=== PATIENT | female | born 1990 | race Hispanic/Latino ===

== ENCOUNTER 2019-09-05 23:27 | Emergency (ER) | payer SELFPAY ==
[2019-09-06 00:22] LABS: #Basophils 0.1 thou/uL (0.0-0.2); #Eosinphils 0.4 thou/uL (0.0-0.7); #Monocytes 0.7 thou/uL (0.11-0.59); #Neutrophils 4.7 thou/uL (1.40-6.50); %Basophils 0.9 % (0.0-1.0); %Eosinophils 4.7 % (0.0-10.0); %Lymphocytes 26.2 % (21.0-51.0); %Monocytes 8.6 % (0.0-10.0); %Neutrophils 59.6 % (42.0-75.0); Hemoglobin 13.5 g/dL (12.0-16.0); Mean Corpuscular Hemoglobin 31.7 pg (27.0-31.0); Mean Corpuscular Volume 90.7 fL (78.0-98.0); Mean Platelet Volume 8.5 fL (7.4-10.4); Platelet Count 173 thou/uL (130-400); RBC Distribution Width 11.5 % (11.5-14.5); Red Blood Cell (RBC) Count 4.24 mill/uL (4.20-5.40); White Blood Cell (WBC) Count 7.8 thou/uL (4.8-10.8)
[2019-09-06 01:31] LABS: Bilirubin Negative (Negative); Blood, Urine Negative (Negative); Clarity Turbid (Clear); Glucose, Urine (Dipstick) 100 mg/dL (Negative); Leukocyte Negative Leu/uL (Negative); Nitrite Negative (Negative); Protein, Urine (Dipstick) Negative (Neg-Trace); Urobilinogen Normal mg/dL (Less than 2)
--- NOTE | 2019-09-06 08:53 | ULT ---
PRELIMINARY REPORT/[facility]/EMERGENCY AFTER HOURS PROCEDURE PROCEDURE INFORMATION: Exam: US First Trimester, Transabdominal Exam date and time: 09/06/2019 12:59 AM Clinical history: 29 years old, female; Lmp or gestational age (in weeks): 7wks; Other: Vag spotting; TECHNIQUE: Imaging protocol: Real-time transabdominal obstetrical ultrasound of the maternal pelvis and a first trimester , less than 14 weeks 0 days, with image documentation. COMPARISON: No relevant prior studies available. FINDINGS: Beta HCG: Beta-hCG measures [id number]. GESTATION: Gestation: Yolk sac is visualized. Heart rate: heart rate measures 143 beats per minute. Placenta: There is hypoechoic region surrounding the gestational sac in the uterine fundus measuring 2 x 0.5 x 2.9 cm and within the lower uterine segment measuring 1.7 x 0.8 x 0.9 cm compatible with subchorionic hemorrhage. Amniotic fluid: Amniotic and chorionic fluid are normal for gestational age. BIOMETRY: Estimated gestational age: Estimated gestational age is 7 weeks 4 days based on crown-rump length. MATERNAL: Uterus: Unremarkable. Cervix: Unremarkable. Right adnexa: The right ovary measures 4 x 1.4 x 2.1 cm. Normal arterial and venous waveforms. Left adnexa: Left ovary measures 3.0 x 1.7 x 2.4 cm. Normal arterial and venous waveforms. Intraperitoneal: No intraperitoneal free fluid. IMPRESSION: 1. Live intrauterine with estimated gestational age of 7 weeks 4 days. 2. Subchorionic hemorrhage as above. Thank you for allowing us to participate in the care of your patient. Dictated and Authenticated by: Wilbert Cardozo MD 09/06/2019 2:02 AM Central Time ([place] & [place]) FINAL REPORT BY DR. ESPINOSA EMERGENCY AFTER HOURS STUDY ULTRASOUND OBSTETRICAL EARLY: HISTORY: First trimester vaginal bleeding in 29-year-old female. FINDINGS: Intrauterine gestational sac containing embryonic pole with crown-rump length of 1.3 cm corresponding to 7 weeks 4 days gestational age. heart rate 143 BPM. There are 2 separate foci of subchorionic hemorrhage. Agree with preliminar y report by [facility]. IMPRESSION: 1. Live first trimester intrauterine gestation. 2. Subchorionic hemorrhage. Transcribed Date/Time: 09/06/2019 9:35 AM
[2019-09-07 14:37] LABS: Chlamydia by PCR Not Detected (NotDetected); GC by PCR Not Detected (NotDetected)
== END 2019-09-06 03:39 | disposition home or self-care (01) ==
LOC: ERS 23:27
DX: O20.0 Threatened abortion (principal); Z3A.01 Less than 8 weeks gestation of pregnancy
CPT/HCPCS: 36415; 76856; 81003; 84702; 85025; 86900; 86901; 87480; 87491; 87510; 87591; 87660

== ENCOUNTER 2020-03-25 20:32 | Inpatient (IN) | payer MEDICAID, SELFPAY ==
[~2020-03-25 20:32] MED LIST: Bupivacaine/Epinephrine 0.25% 30 ML VIAL ONE
[2020-03-25] MEDS ORDERED: Carboprost 250 MCG/ML AMP IM PRN (21:26)
[2020-03-25] MEDS ORDERED: Methylergonovine 0.2 MG/ML VIAL IM PRN (21:26)
[2020-03-25] MEDS ORDERED: Promethazine HCl 25 MG/ML VIAL IM PRN (21:26)
[2020-03-25] MEDS ORDERED: Misoprostol 200 MCG TAB PR PRN (21:26)
[2020-03-25] MEDS ORDERED: NS / Oxytocin 40 units/1000ml 1,000 ML IV PRN (21:26)
[2020-03-25] MEDS ORDERED: hydrALAZINE 20 MG/ML VIAL SLOW IVP PRN (21:26)
[2020-03-25] MEDS ORDERED: Ondansetron PF 4 MG/2 ML Vial IVP PRN (21:26)
[2020-03-25] MEDS ORDERED: Butorphanol Tartrate 1 MG/ML VIAL SLOW IVP PRN (21:26)
[2020-03-25] MEDS ORDERED: Lidocaine 1% (PF) 30 ML VIAL SC PRN (21:26)
--- NOTE | 2020-03-25 21:42 | PDOC.FPROB ---
FMR OB H&P: HPI - History of Present Illness Chief Complaint: SROM @ 20:30 Indentification: 29 y/o @ 36.5 wks dated by LMP c/w 7.0 wk sono History of Present Illness: 29 y/o @ 36.5 wks dated by LMP c/w 7.0 wk sono, presents to L&D after SROM at 20:30 today (03/25). Pt states that there is a large amount of clear fluid draining vaginally whenever she stands, soaking through her clothing. Pt reports movements, denies vaginal bleeding. Pt feels pain in her low pelvic region and states she had a "mucus like" discharge a few days ago. Does not think she is having contractions. Pt states it has been 2 weeks since sexual intercourse. Pt had a large subchorionic hemorrhage early in and had vaginal bleeding early on in that resolved. Primary Care Physician: [facility]- Dr. Ortiz FMR OB H&P: Current - Care : 1 Para: 0 Gestational age: 36.5 Due date: 04/17/20 Dating Criteria: LMP c/w 7.0 wk sono Course/Complications: Large subchorionic hemorrhage early in - OB Labs Blood type: O RH: positive Antibody Screen: negative HIV: negative RPR: negative HepBsAg: negative Rubella: immune Gonorrhea: unknown Chlamydia: unknown 1 hour gtt: 123 GBS: negative (Per patient, will confirm with [facility] records) - First Trimester Ultrasound First trimester: dating 7.0 wk sono FMR OB H&P: History - Past Medical History PMH: no known medical problems - OB History OB History: large subchorionic hemorrhage early this , resolved - Surgical History Sx History: L breast lesion removal, benign in 2016 - Social History Social History: Denies tobacco, etoh or drug use. - Family History Family History: no known family medical problems. FMR OB H&P: Medications - Current Home Medications: Medication Instructions Recorded Confirmed Type Pnv No.95/Ferrous Fum/Folic AC 1 each PO 03/25/20 History [ [place]] Allergies/Adverse Reactions: Allergies Allergy/AdvReac Type Severity Reaction Status Date / Time No Known Drug Allergies Allergy Unverified 03/25/20 21:35 FMR OB H&P: ROS - Review of Systems General: denies: fever/chills, fatigue Eyes: denies: eye pain, vision changes ENT: denies: nasal congestion, sore throat Cardiovascular: denies: chest pain, edema Respiratory: denies: cough, shortness of breath Gastrointestinal: denies: abdominal pain, nausea, vomiting, diarrhea Genitourinary (Female): reports: vaginal discharge, vaginal pain, vaginal pressure. denies: incontinence, dysuria, hematuria, hesitancy, vaginal bleeding , contractions Musculoskeletal: denies: pain, swelling Neurologic: denies: numbness, seizures Integumentary: denies: itching, rash Endocrine: denies: polyuria Hematologic/Lymphatic: denies: prolonged or excessive bleeding FMR OB H&P: Vital Signs - Maternal Vital signs: 114/77 bp 96 hr 18 rr 98 % on RA 98.3 temp - Heart Tones Baseline: 140 Variability: moderate Acceleration: present Deceleration: absent Category: category 1 [place] contractions every: 3-5 min FMR OB H&P: Physical Exam - Physical Exam General: NAD, awake, alert and oriented HEENT: normocephalic and atraumatic, PERRLA, EOMI, MMM, conjunctiva clear, no scleral icterus, grossly normal vision, grossly normal hearing, good dention Neck: supple, FROM, trachea midline Chest: non-tender to palpation Breast: symmetric Heart: RRR, normal S1/S2, no murmurs/rubs/gallops, pulses present, no edema General: CTAB, no respiratory distress, good air movement, no rales/rhonchi, no wheezing, no retractions Abdomen: soft, gravid, non-tender, bowel sound present, no masses, no hernias Musculoskeletal: normal gait and station, pulses present, FROM in all four extremities, no misalignment/asymmetry, no atrophy Neurological: cranial nerves II through XII intact, sensation to pain,touch and proprioception grossly normal, no clonus, no tremor, no focal deficit Skin: no rash, good tugor, capillary refill <2 seconds, no jaundice Lymphatic: no unusual bruising or bleeding, no purpura, no petechia Psychiatric: intact recent and remote memory, good judgement and insight, normal mood and affect - Pelvic Exam Vulva: normal hair distribution, appropriate kathie stage, no masses, no lesions , no blood Deviation from normal: Leo clear fluid present whel patient stands, or valsalvas leaking vaginal SVE: /-3 Eagle score: 8 Membranes: ruptured Presentation: cephalic, confrimed with fast sono FMR OB H&P: A/P - Problem List (1) premature rupture of membranes (PPROM) with onset of labor within 24 hours of rupture in third trimester, antepartum Current Visit: Yes Status: Acute Code(s): O42.013 - PRETRM GRAEME ROM, ONSET LABOR W/N 24 HOURS OF RUPT, THIRD TRI (2) SROM (spontaneous rupture of membranes) Current Visit: Yes Status: Acute Code(s): EEP1098 - (3) Subchorionic hemorrhage of placenta in first trimester Current Visit: No Status: Resolved Code(s): O41.8X10 - OTH DISRD OF AMNIOTIC FLUID AND MEMBRNS, FIRST TRI, UNSP; O46.8X1 - OTHER ANTEPARTUM HEMORRHAGE, FIRST TRIMESTER Qualifiers: Fetus number: single or unspecified fetus Qualified Code(s): O41.8X10 - Other specified disorders of amniotic fluid and membranes, first trimester, not applicable or unspecified; O46.8X1 - Other antepartum hemorrhage, first trimester Discussion: Date/Time: 03/25/20 2138 29 y/o @ 36.5 wks dated by LMP c/w 7.0 wk sono admitted to L&D for PPROM, for pitocin augmentation of labor. 1. PPROM - SROM @ 20:30 on 03/25 - Leo clear fluid present on exam draining vaginally, increased with valsalva and standing 2. sIUP - @ 36.5 wks gestation - detailed conversation of risk vs benefit for steroid use with pt and partner. They elected to not receive steroids, due to being two days to a term . - Pt is unsure about epidural for pain management, she will update team if she decides to receive epidural after watching education video. - Ctx Q3-5 min - SVE /-3 @ 21:30 - Q4Hr SVE 3. Hx of subchorionic hemorrhage in 1T - resolved, no vag bleeding. This H&P was discussed with Dr. Amaral and Dr. Rangel who agree with the above documentation and plan.
[2020-03-25 22:13] LABS: Hemoglobin 12.7 g/dL (12.0-16.0); Mean Corpuscular HGB CONC 33.4 g/dL (32.0-36.0); Mean Corpuscular Hemoglobin 30.4 pg (27.0-31.0); Mean Platelet Volume 10.3 fL (7.4-10.4); Platelet Count 111 thou/uL (130-400); RBC Distribution Width 12.4 % (11.5-14.5); Red Blood Cell (RBC) Count 4.19 mill/uL (4.20-5.40); White Blood Cell (WBC) Count 10.3 thou/uL (4.8-10.8)
[2020-03-25 22:50] VITALS: BMI 23.3
[2020-03-25 22:51] LABS: Syphilis Antibody Nonreactive (Nonreactive); Syphilis Antibody Index 0.04 S/CO (<1.00 Non-Reactive)
[2020-03-25 22:52] LABS: HBSAg Index 0.17 S/CO (0-0.99); HIV (1/2) Antibody/Antigen Non-Reactive (NonReactive); HIV 1/2 INDEX 0.06 S/CO (<1.00); Hep B Surf Ag Non-Reactive S/CO (NonReactive)
--- NOTE | 2020-03-26 01:28 | PDOC.LDPN ---
Labor & Delivery Progress Note - Subjective Subjective: comfortable, painful contractions - Objective Vital signs reviewed and normal: yes General: NAD, resting, breathing through contractions Uterine fundus: non tender SVE: Dr. Lanza @ 01:20. 4/%/-1 Dilation: 4 Effacement: 90% Station: -1 FHT: category 1 (135 baseline, mod variability, accels present, few early decels. ) [place] contractions every: q2-3 - Assessment (1) premature rupture of membranes (PPROM) with onset of labor within 24 hours of rupture in third trimester, antepartum Code(s): O42.013 - PRETRM GRAEME ROM, ONSET LABOR W/N 24 HOURS OF RUPT, THIRD TRI Current Visit: Yes Status: Acute (2) SROM (spontaneous rupture of membranes) Code(s): CGZ7196 - Current Visit: Yes Status: Acute (3) Subchorionic hemorrhage of placenta in first trimester Code(s): O41.8X10 - OTH DISRD OF AMNIOTIC FLUID AND MEMBRNS, FIRST TRI, UNSP; O46.8X1 - OTHER ANTEPARTUM HEMORRHAGE, FIRST TRIMESTER Current Visit: No Status: Resolved Qualifiers: Fetus number: single or unspecified fetus Qualified Code(s): O41.8X10 - Other specified disorders of amniotic fluid and membranes, first trimester, not applicable or unspecified; O46.8X1 - Other antepartum hemorrhage, first trimester Plan: continue plan of care -: 29 y/o @ 36.6 wks dated by LMP c/w 7.0 wk sono admitted to L&D for PPROM, for labor. 1. PPROM - SROM @ 20:30 on 03/25 - Leo clear fluid present on exam draining vaginally, increased with valsalva and standing 2. sIUP - @ 36.6 wks gestation - detailed conversation of risk vs benefit for steroid use with pt and partner. They elected to not receive steroids, due to being one day to a term . - Pt is unsure about epidural for pain management, she will update team if she decides to receive epidural after watching education video. - Ctx Q3-5 min - SVE /-3 @ 21:30 - SVE /-1 @ 01:20 - recheck in 3 hours. continue current plan as change has been made and pt now starting a good contraction pattern at Q2-3 minutes. - Will start pitocin at 4 am if no significant change beyond 6 cm. 3. Hx of subchorionic hemorrhage in 1T - resolved, no vag bleeding. This H&P was discussed with Dr. Amaral and Dr. Rangel who agree with the above documentation and plan.
--- NOTE | 2020-03-26 01:37 | PDOC.BPN ---
- Brief Progress Note [facility] confirmed negative GBS status. No ppx antibiotic necessary at this time.
[2020-03-26] MEDS ORDERED: Fentanyl 4 mcg/Bup 0.1% Cadd 100 ML ONE (02:02)
[2020-03-26] MEDS ORDERED: Ondansetron PF 4 MG/2 ML Vial IVP PRN (02:47)
[2020-03-26] MEDS ORDERED: Promethazine HCl 25 MG/ML VIAL IM PRN (02:47)
[2020-03-26] MEDS ORDERED: Lactated Ringer's 500 ML IV PRN (02:47)
[2020-03-26] MEDS ORDERED: Naloxone HCl 0.4 mg/ml Vial IVP PRN ×2 (02:47)
[2020-03-26] MEDS ORDERED: diphenhydrAMINE 50 MG/ML VIAL IVP PRN (02:47)
[2020-03-26] MEDS ORDERED: EPHEDRINE 25 MG/5 ML SYRINGE SLOW IVP PRN (02:47)
[2020-03-26] MEDS ORDERED: Acetaminophen 325 MG TAB PO PRN (02:47)
[2020-03-26] MEDS ORDERED: Fentanyl 4 mcg/Bupivacaine 0.1% Cassette 100 ML EPIDURAL SCH (03:00)
[2020-03-26] MEDS ORDERED: Communication Order-Pharmacy FS SCH (03:00)
--- NOTE | 2020-03-26 03:54 | PDOC.LDPN ---
Labor & Delivery Progress Note - Subjective Subjective: comfortable - Objective Vital signs reviewed and normal: yes General: NAD, resting, breathing through contractions Uterine fundus: non tender SVE: Nurse Miguel, /0 Dilation: 8 Effacement: 100% Station: 0 FHT: category 1 (fht baseline 130, accels present, no decels. Moderate variability. ) [place] contractions every: q2min Procedures: epidural placed 1 hour ago. - Assessment (1) premature rupture of membranes (PPROM) with onset of labor within 24 hours of rupture in third trimester, antepartum Code(s): O42.013 - PRETRM GRAEME ROM, ONSET LABOR W/N 24 HOURS OF RUPT, THIRD TRI Current Visit: Yes Status: Acute (2) SROM (spontaneous rupture of membranes) Code(s): [id number] - Current Visit: Yes Status: Acute (3) Subchorionic hemorrhage of placenta in first trimester Code(s): O41.8X10 - OTH DISRD OF AMNIOTIC FLUID AND MEMBRNS, FIRST TRI, UNSP; O46.8X1 - OTHER ANTEPARTUM HEMORRHAGE, FIRST TRIMESTER Current Visit: No Status: Resolved Qualifiers: Fetus number: single or unspecified fetus Qualified Code(s): O41.8X10 - Other specified disorders of amniotic fluid and membranes, first trimester, not applicable or unspecified; O46.8X1 - Other antepartum hemorrhage, first trimester -: 29 y/o @ 36.6 wks dated by LMP c/w 7.0 wk sono admitted to L&D for PPROM, for labor. 1. PPROM - SROM @ 20:30 on 03/25 - Leo clear fluid present on exam draining vaginally, increased with valsalva and standing 2. sIUP - @ 36.6 wks gestation - detailed conversation of risk vs benefit for steroid use with pt and partner. They elected to not receive steroids, due to being one day to a term . - Epidural for pain management - GBS negative - Ctx Q2 min - SVE 390/-3 @ 21:30 - SVE 495/-1 @ 01:20 - SVE 5100/-1 @ 05:10 - SVE /0 @ 0400 - recheck in 2 hours. - continue current labor plan, no pit at this time. 3. Hx of subchorionic hemorrhage in 1T - resolved, no vag bleeding. This H&P was discussed with Dr. Amaral and Dr. Rangel who agree with the above documentation and plan.
[2020-03-26] MEDS ORDERED: Bisacodyl 10 MG SUPP PR PRN (08:19)
[2020-03-26] MEDS ORDERED: Adacel (T-DAP) 0.5 ML SYRINGE IM ONE (08:19)
[2020-03-26] MEDS ORDERED: Preparation H Ointment 28 GM TUBE PR PRN (08:19)
[2020-03-26] MEDS ORDERED: Methylergonovine 0.2 MG TAB PO PRN (08:19)
[2020-03-26] MEDS ORDERED: Benzocaine-Menthol 82.5 ML CAN TOP PRN (08:19)
[2020-03-26] MEDS ORDERED: Milk Of Magnesia 30 ML UDCUP PO PRN (08:19)
[2020-03-26] MEDS ORDERED: diphenhydrAMINE 25 MG CAP PO PRN (08:19)
[2020-03-26] MEDS ORDERED: Lanolin Ointment 7 GM TUBE TOP PRN (08:19)
[2020-03-26] MEDS: Docusate Calcium (SURFAK) 240 MG CAP PO SCH ×2 (11:41→20:58)
[2020-03-26] MEDS: Prenatal Vitamin 1 TAB PO SCH (11:42)
[2020-03-26] MEDS: Ibuprofen 800 MG TAB PO SCH ×2 (13:58→20:58)
[2020-03-26] MEDS: Lactated Ringer's 1,000 ML IV SCH ×3 (14:33→19:29)
[2020-03-26] MEDS: Ferrous Sulfate 325 MG TAB PO SCH (14:34)
[2020-03-26] MEDS: NS w/ Oxytocin 10 units 500 ML IV SCH ×2 (14:34→19:29)
[2020-03-27] MEDS ORDERED: Lactated Ringer's 500 ML IV SCH (01:00)
[2020-03-27] MEDS: Lactated Ringer's 1,000 ML IV SCH ×2 (04:31→14:15)
[2020-03-27] MEDS: Ibuprofen 800 MG TAB PO SCH ×3 (05:07→22:41)
[2020-03-27 05:42] LABS: Hemoglobin 9.1 g/dL (12.0-16.0); Mean Corpuscular HGB CONC 32.9 g/dL (32.0-36.0); Mean Corpuscular Hemoglobin 31.1 pg (27.0-31.0); Mean Corpuscular Volume 94.6 fL (78.0-98.0); Mean Platelet Volume 10.6 fL (7.4-10.4); Platelet Count 113 thou/uL (130-400); RBC Distribution Width 12.8 % (11.5-14.5); Red Blood Cell (RBC) Count 2.93 mill/uL (4.20-5.40); White Blood Cell (WBC) Count 13.1 thou/uL (4.8-10.8)
--- NOTE | 2020-03-27 07:56 | PDOC.PP ---
Post Progress Note Post Day #: 1 Subjective: 29 yo ->1 pp day 1. Doing well, some mild pain near laceration site relieved with ibuprofen. Eating and drinking well. Ambulating. PO intake tolerated: yes Flatus: yes Ambulation: yes Vital Signs (12 hours) Temp Pulse Resp BP Pulse Ox 03/27/20 05:09 98.6 F 78 20 87/54 L 100 03/27/20 02:39 98/52 L 03/27/20 01:37 84/51 L 03/27/20 00:45 92/43 L 03/27/20 00:36 98.2 F 72 20 90/51 L 100 03/26/20 20:18 98.6 F 79 20 90/50 L 95 Weight Weight 58.967 kg - Physical Examination General: NAD Cardiovascular: no m/r/g, RRR Respiratory: clear to auscultation bilaterally Abdominal: + bowel sounds, lochia, no distention, appropriately TTP Extremities: negative homans (B) Skin: no rash Neurological: no gross focal deficits Psychiatric: normal affect Result Diagrams: 03/27/20 05:22 Additional Labs: Post Labs Blood Type O POSITIVE 03/25/20 22:02 Hep Bs Antigen Non-Reactive S/CO (NonReactive) 03/25/20 22:02 (1) Vaginal delivery Code(s): O80 - ENCOUNTER FOR FULL-TERM UNCOMPLICATED DELIVERY Status: Acute (2) Gestational thrombocytopenia without hemorrhage Code(s): O99.119 - OTH DIS OF BLD/BLD-FORM ORG/IMMUN MECHNSM COMP PREG,UNSP TRI ; D69.6 - THROMBOCYTOPENIA, UNSPECIFIED Status: Acute - Assessment/Plan 1) - doing well all pp milestones met - laceration well healing, cont current pain regimen, add dermoplast - iron po for anemia 2) Gest thrombocytopenia, - no hemorrhage - monitor for s/s bleeding Dispo: stable, possibly dc to home tomorrow pending clinical course and baby. Addendum - Attending - Attending Attestation Date/Time: 03/27/20 0882 I personally evaluated the patient and discussed the management with Dr. Ortiz. I agree with the History, Examination, Assessment and Plan documented above.
[2020-03-27] MEDS: Prenatal Vitamin 1 TAB PO SCH (09:11)
[2020-03-27] MEDS: Ferrous Sulfate 325 MG TAB PO SCH ×2 (09:11→17:03)
[2020-03-27] MEDS: Docusate Calcium (SURFAK) 240 MG CAP PO SCH ×2 (09:11→22:41)
--- NOTE | 2020-03-27 17:25 | DN ---
DATE OF PROCEDURE: 03/26/2020 DELIVERING PHYSICIAN: Pop Ortiz DO ATTENDING PHYSICIAN: Lowell Decker MD PROCEDURE PERFORMED: Spontaneous vaginal delivery. ANESTHESIA: Epidural. QUANTITATIVE BLOOD LOSS: Pending at this time. PREOPERATIVE DIAGNOSES: 1. intrauterine with rupture of membranes. 2. complicated by early subchorionic hemorrhage, which resolved. 3. Questionable prolonged rupture of membranes. 4. GBS negative. POSTOPERATIVE DIAGNOSES: 1. intrauterine with rupture of membranes. 2. complicated by early subchorionic hemorrhage, which resolved. 3. Questionable prolonged rupture of membranes. 4. GBS negative. INDICATIONS: The patient is a 29-year-old, G1, P0, who presented at 36 and 5 weeks and delivered at 36 and 6 weeks after spontaneous rupture of membranes. DELIVERY NOTE: This is a 29-year-old female, G1, P0-0-0-0, at 36 and 6 weeks, who delivered a viable male at 0813. Following an uneventful antepartum course, a vigorous male was delivered over an intact perineum in the occipitoanterior position. The anterior shoulder and then the remainder of the body delivered. There was no nuchal cord. The head was held down, and mouth and nares were bulb suctioned. Cord clamped and cut and cord blood collected. Placenta delivered intact with three-vessel cord noted. Fundal massage was performed and the fundus was firm. Cervix and vagina were inspected and there was noted to be a second-degree perineal laceration, which was repaired with 2-0 chromic suture in the usual fashion with good approximation and hemostasis. The went to the nursery in good condition for routine care. Apgars were 8 and 9 at one and five minutes respectively. The patient tolerated the delivery well, will be transferred to after routine recovery. QBL is pending at this time. Present to attend and assist with this uncomplicated with Dr. Ortiz. Baby to N. Mom to recover in L&D. Job ID: [id number] [facility]
[2020-03-28] MEDS: NS w/ Oxytocin 10 units 500 ML IV SCH (00:03)
[2020-03-28] MEDS: Lactated Ringer's 1,000 ML IV SCH (00:03)
[2020-03-28] MEDS: Ibuprofen 800 MG TAB PO SCH (04:55)
--- NOTE | 2020-03-28 06:32 | PDOC.PP ---
Post Progress Note Post Day #: 2 Subjective: Doing well PO intake tolerated: yes Flatus: yes Ambulation: yes Vital Signs (12 hours) Temp Pulse Resp BP Pulse Ox 03/27/20 20:00 98.4 F 73 18 96/52 L 100 Weight Weight 130 lb - Physical Examination General: NAD Cardiovascular: no m/r/g Respiratory: clear to auscultation bilaterally Abdominal: + bowel sounds, lochia, no distention Extremities: negative homans (B) Neurological: no gross focal deficits Psychiatric: A&Ox3, normal affect Result Diagrams: 03/27/20 05:22 Additional Labs: Post Labs Blood Type O POSITIVE 03/25/20 22:02 Hep Bs Antigen Non-Reactive S/CO (NonReactive) 03/25/20 22:02 (1) Vaginal delivery Code(s): O80 - ENCOUNTER FOR FULL-TERM UNCOMPLICATED DELIVERY Status: Acute - Assessment/Plan PPD2 doing well. OK for DC home. Follow up in 2 weeks
[2020-03-28 07:45] VITALS: BP 107/68; TEMP 98.6
--- NOTE | 2020-03-28 07:53 | PDOC.PP ---
Post Progress Note Post Day #: 2 Subjective: 29 yo @ 36.6 via . Doing well no maternal issues. Concerned about babys bili and feeding. PO intake tolerated: yes Flatus: yes Ambulation: yes Vital Signs (12 hours) Temp Pulse Resp BP Pulse Ox 03/28/20 07:44 98.6 F 88 20 107/68 96 03/27/20 20:00 98.4 F 73 18 96/52 L 100 Weight Weight 58.967 kg - Physical Examination General: NAD Cardiovascular: no m/r/g, RRR Respiratory: clear to auscultation bilaterally, non-labored breathing Abdominal: + bowel sounds, lochia, no distention, appropriately TTP Extremities: negative homans (B) Skin: no rash Neurological: no gross focal deficits Psychiatric: normal affect Result Diagrams: 03/27/20 05:22 Additional Labs: Post Labs Blood Type O POSITIVE 03/25/20 22:02 Hep Bs Antigen Non-Reactive S/CO (NonReactive) 03/25/20 22:02 (1) Vaginal delivery Code(s): O80 - ENCOUNTER FOR FULL-TERM UNCOMPLICATED DELIVERY Status: Acute (2) Gestational thrombocytopenia without hemorrhage Code(s): O99.119 - OTH DIS OF BLD/BLD-FORM ORG/IMMUN MECHNSM COMP PREG,UNSP TRI ; D69.6 - THROMBOCYTOPENIA, UNSPECIFIED Status: Acute - Assessment/Plan 1) PP day 2 s/p - all pp milestones met - consider DC tomorrow or later today 2) Gest thrombocytopenia - no bleeding - platelets stable Dispo: Stable, consider dc later today vs tomorrow
[2020-03-28] MEDS: Prenatal Vitamin 1 TAB PO SCH (08:53)
[2020-03-28] MEDS: Docusate Calcium (SURFAK) 240 MG CAP PO SCH (08:53)
[2020-03-28] MEDS: Ferrous Sulfate 325 MG TAB PO SCH (08:53)
== END 2020-03-28 12:10 | disposition home or self-care (01) | DRG 806 ==
LOC: L&D/OP 20:32 → L&D 22:30 → 3SW 03-26 14:52
PROVIDERS: ADMIT Obstetrics & Gynecology; ATTEND Family Medicine
PROC: 10E0XZZ Delivery of Products of Conception, External Approach (ICD-10-PCS; principal; 2020-03-28)
PROC: 0KQM0ZZ Repair Perineum Muscle, Open Approach (ICD-10-PCS; 2020-03-28)
DX: O42.013 Preterm premature rupture of membranes, onset of labor within 24 hours of rupture, third trimester (principal); O99.12 Other diseases of the blood and blood-forming organs and certain disorders involving the immune mechanism complicating childbirth; Z37.0 Single live birth; Z3A.35 35 weeks gestation of pregnancy; O70.1 Second degree perineal laceration during delivery; D69.6 Thrombocytopenia, unspecified
CPT/HCPCS: 36415; 51702; 85027; 86780; 86850; 86900; 86901; 87340; 87389; 99285

== ENCOUNTER 2023-03-09 19:07 | Emergency (ER) | payer MEDICAID, SELFPAY ==
[2023-03-09] MEDS ORDERED: Acetaminophen 325 MG TAB ONE (19:31)
[2023-03-09 19:45] LABS: #Neutrophils 2.5 thou/uL (1.40-6.50); %Basophils 0.7 % (0.0-1.0); %Lymphocytes 14.4 % (21.0-51.0); %Monocytes 1.3 % (0.0-10.0); %Neutrophils 82.3 % (42.0-75.0); Hemoglobin 12.7 g/dL (12.0-16.0); Mean Corpuscular HGB CONC 34.2 g/dL (32.0-36.0); Mean Corpuscular Hemoglobin 30.2 pg (27.0-31.0); Mean Corpuscular Volume 88.3 fl (78.0-98.0); Mean Platelet Volume 10.9 fL (7.4-10.4); RBC Distribution Width 12.8 % (11.5-14.5)
[2023-03-09 19:46] LABS: Platelet Count 120 10x3/uL (130-400)
[2023-03-09 19:51] LABS: BHCG - Serum POSITIVE (NEGATIVE); Pregs Control Background? CLEAR/WHITE (CLR/WHITE); Pregs Control Bar Appear? YES (CONTROL BAR)
[2023-03-09 20:07] LABS: ALT (SGPT) 36 U/L (8-55); AST (SGOT) 51 U/L (5-34); Albumin 4.1 g/dL (3.5-5.0); Alkaline Phosphatase 80 U/L (40-110); Anion Gap 18 mmol/L (10-20); BUN (Urea Nitrogen) 6 mg/dL (7.0-18.7); Bilirubin, Total 0.5 mg/dL (0.2-1.2); Calc. Creatinine Clearance 0 mL/min (70-130); Calcium 9.7 mg/dL (7.8-10.44); Carbon Dioxide 21 mmol/L (22-29); Chloride 99 mmol/L (98-107); Estimated GFR 120; Globulin 3.5 g/dL (2.4-3.5); Glucose 109 mg/dL (70-105); Potassium 3.7 mmol/L (3.5-5.1); Protein, Total 7.6 g/dL (6.0-8.3); Sodium 134 mmol/L (136-145)
[2023-03-09 21:10] LABS: Bilirubin Negative (Negative); Blood, Urine 3+ (Negative); Clarity Clear (Clear); Glucose, Urine (Dipstick) 200 mg/dL (Negative); Ketone, Urine 20 mg/dL (Negative); Leukocyte 250 Leu/uL (Negative); Nitrite Negative (Negative); Protein, Urine (Dipstick) 20 mg/dL (Neg-Trace); RBC/HPF 21-50 HPF (0-3); Specific Gravity, Urine 1.008 (1.002-1.036); Squamous Epithelial 0-3 HPF (0-3); Urobilinogen Normal mg/dL (Less than 2); pH, Urine 5.5 (5.0-9.0)
[2023-03-09 21:22] LABS: Bacteria/HPF 1+ HPF (None Seen)
[2023-03-09 21:38] LABS: SARS-CoV-2 NAA Rapid Test Not Detected (NotDetected)
[2023-03-09] MEDS ORDERED: Cefepime 2 GM VIAL ONE (22:13)
[2023-03-09] MEDS ORDERED: Vancomycin 1 GM/200 ML (FROZEN) BAG ONE (22:14)
[2023-03-09 22:37] LABS: Lactic Acid 1.2 mmol/L (0.5-2.2)
== END 2023-03-10 01:13 | disposition short-term general hospital (02) ==
LOC: ERS 19:07
DX: O98.812 Other maternal infectious and parasitic diseases complicating pregnancy, second trimester (principal); O23.02 Infections of kidney in pregnancy, second trimester; O23.42 Unspecified infection of urinary tract in pregnancy, second trimester; O99.112 Other diseases of the blood and blood-forming organs and certain disorders involving the immune mechanism complicating pregnancy, second trimester; A41.9 Sepsis, unspecified organism; N39.0 Urinary tract infection, site not specified; N10 Acute pyelonephritis; Z3A.15 15 weeks gestation of pregnancy; Z20.822 Contact with and (suspected) exposure to COVID-19
CPT/HCPCS: 36415; 71045; 80053; 81003; 81015; 83605; 84703; 85025; 87040; 87077; 87081; 87086; 87186; 87430; 93005; 96361; 96365; 96367; J0692; J3370-JW

== ENCOUNTER 2023-07-01 14:47 | Emergency (ER) | payer MEDICAID, SELFPAY | END 2023-07-01 15:44 | disposition home or self-care (01) | LOC: ERS 14:47 | DX: J03.90 Acute tonsillitis, unspecified (principal) | CPT/HCPCS: 87081; 87430; 99283 ==

== ENCOUNTER 2024-02-27 16:56 | Emergency (ER) | payer SELFPAY ==
[2024-02-27 18:25] LABS: Bacteria/HPF None Seen HPF (None Seen); Bilirubin Negative (Negative); Blood, Urine Negative (Negative); CAUTI Indications for Culture Dysuria,urgency,freq; Clarity Clear (Clear); Glucose, Urine (Dipstick) Normal (Negative); Ketone, Urine Negative (Negative); Leukocyte 25 Leu/uL (Negative); Nitrite Negative (Negative); Protein, Urine (Dipstick) Negative (Neg-Trace); RBC/HPF 0-3 HPF (0-3); Specific Gravity, Urine 1.005 (1.002-1.036); Squamous Epithelial 0-3 HPF (0-3); Urobilinogen Normal mg/dL (Less than 2); pH, Urine 6.5 (5.0-9.0)
[2024-02-27 18:26] LABS: Urine Culture Reflex No No
[2024-02-27] MEDS ORDERED: Acetaminophen 500 MG TAB ONE ×2 (18:37→18:43)
[2024-02-27] MEDS ORDERED: Ondansetron ODT 4 MG TAB ONE (18:38)
[2024-02-27 19:22] LABS: Pregnancy Test - Urine (BHCG) Negative (Negative); Pregu Control Background? CLEAR/WHITE (CLR/WHITE); Pregu Control Bar Appear? YES (CONTROL BAR); Specific Gravity 1.005 (1.002-1.036)
== END 2024-02-27 19:58 | disposition home or self-care (01) ==
LOC: ERS 16:56
DX: N30.00 Acute cystitis without hematuria (principal); R11.0 Nausea
CPT/HCPCS: 81001; 81025; 87086; 99283; Q0162